=== PATIENT | female | born 1980 | race Caucasian/White ===

== ENCOUNTER 2022-04-10 09:52 | Emergency (ER) | payer OTHER, SELFPAY ==
[2022-04-10 10:22] VITALS: BP 138/91; PULSE 74; RESP 16; TEMP 36.3; O2SAT 100
--- NOTE | 2022-04-10 11:06 | ED.BACK ---
HPI - Back Pain/Injury General Chief Complaint: Back Pain/Injury Stated Complaint: injury in low back Time Seen by Provider: 04/10/22 10:49 Source: patient Mode of arrival: ambulatory Limitations: no limitations History of Present Illness HPI Narrative: Patient presents today complaining of right-sided back pain radiating down her right leg. Last night patient lifted a heavy patient at work injuring her back. Patient currently rates her pain 7/10, which increases significantly with movement. Related Data Allergies Allergy/AdvReac Type Severity Reaction Status Date / Time No Known Allergies Allergy Verified 04/10/22 10:20 Review of Systems Review of Systems: CONSTITUTIONAL: Denies body aches, fever, chills, or sweats. EYES: Denies visual changes, redness, or discharge. ENT: Denies rhinorrhea, congestion, sore throat, or otalgia. CARDIOVASCULAR: Denies chest pain, palpitations, or edema. RESPIRATORY: Denies cough or dyspnea. GASTROINTESTINAL: Denies abdominal pain, nausea, vomiting, or diarrhea. GENITOURINARY: Denies dysuria or hematuria. SKIN: Denies rash, itching, or wounds. MUSCULOSKELETAL: Denies joint pain, or myalgia+ Low back pain. NEUROLOGIC: Denies headache, numbness, tingling, or weakness. PSYCH: Denies depression or anxiety. PMFSH Comments At time of signature, I have reviewed and agree with nursing past medical, surgical, social and family history unless otherwise noted. Please see nursing chart for further information. There is no relevant family history pertinent to the presenting complaint Exam Narrative: GENERAL: Well-appearing, well-nourished, and in no acute distress. HEAD: Normocephalic, atraumatic. EYES: EOMI. No redness or drainage. Conjunctivae normal. ENT: Mucous membranes pink and moist. NECK: Normal AROM. CHEST: No respiratory distress. MUSCULOSKELETAL: No bony tenderness of the spine. right lower lumbar paraspinal muscle tenderness that extends to the right SI joint. Distal sensation intact. Capillary refill normal. Saddle sensation intact. Foot push and pulls equal and strong. Patellar reflexes strong bilaterally. EXTREMITIES: Normal range of motion. No edema. SKIN: Warm, dry, no rash. Capillary refill normal. Normal skin turgor. NEURO: No focal deficits. Alert and oriented x3. Gait steady. PSYCH: Normal affect. No signs of depression or anxiety. Course Course Level of Care: Express Care Visit Vital Signs Vital signs: Vital Signs Temperature 97.4 F L 04/10/22 10:22 Pulse Rate 74 04/10/22 10:22 Respiratory Rate 16 04/10/22 10:22 Blood Pressure 138/91 H 04/10/22 10:22 Pulse Oximetry 100 04/10/22 10:22 Temperature 97.4 F L 04/10/22 10:22 Pulse Rate 74 04/10/22 10:22 Respiratory Rate 16 04/10/22 10:22 Blood Pressure 138/91 H 04/10/22 10:22 Pulse Oximetry 100 04/10/22 10:22 Reviewed. Pt has been instructed to follow up with her PCP regarding her elevated blood pressure today. MDM - Back Pain/Injury Differential Diagnosis Differential diagnosis: Likely lumbar radiculopathy, sciatica, strain of lumbar region and other ( Bulging disc) Critical Care Time Critical Care Time Critical Care Time: No Discharge Plan Discharge Clinical Impression: Acute right-sided back pain with sciatica Patient Disposition: Home, Self-Care Condition: Stable Instructions: Sciatica (ED), Low Back Strain (ED) Additional Instructions: please take the Flexeril and diclofenac as prescribed. Do not drive within 8 hours of taking the Flexeril as it can make you drowsy. Use a heating pad to help relax the muscles. Follow-up with the PCP or Occupational Medicine physician in 1 week if symptoms are not improving. Go to the ER immediately if you develop any numbness in your leg or genitalia, or lose the control of your bowel or bladder. Your blood pressure was elevated above 120/80 today at Urgent Care. This puts you above the threshold f
== END 2022-04-10 11:26 | disposition home or self-care (01) ==
PROVIDERS: Emergency Provider Nurse Practitioner
DX: M54.41 Lumbago with sciatica, right side (principal); E11.9 Type 2 diabetes mellitus without complications
CPT/HCPCS: 99213; G0463

== ENCOUNTER 2022-09-04 14:27 | Outpatient (RCR) | payer OTHER, SELFPAY ==
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
--- NOTE | 2022-09-12 08:00 | PCPTNOTE ---
Patient did not show up for scheduled appointment 09/11/2022 at 7:45 am.
--- NOTE | 2022-09-18 13:26 | PTOPDC ---
Assessment and note entered by Yuli Duarte, PT Assessment Status Discharge - Pt Not Present Diagnosis low back pain unspec. Onset multiple years Subjective Information Once a year (accept about last two) will go out and will have to be wheeled into ER, be given cortisone shot, pain medication, and muscles relaxers and will be sent home. Has been through this process multiple years about 10 times. Reports after work will have to use somethine to assist in standing and have to walk it out. Assessment PT Clinical Summary Pt no-call no-showed to two appointments. Pt was called multiple times with no return call. Per policy, pt is being discharged from therapy due to non-attendance. Should patient require therapy in the future, a new prescription will be required to reinitiated her plan of care.
== END 2022-09-18 13:31 | disposition home or self-care (01) ==
LOC: ANHHIPT 14:27
PROVIDERS: PCP Nurse Practitioner Family; Visit Provider Nurse Practitioner Family
DX: M54.50 Low back pain, unspecified (principal)
CPT/HCPCS: 97110; 97162